=== PATIENT | male | born 1970 | race Caucasian/White ===

== ENCOUNTER 2018-10-11 11:52 | Emergency (ER) | payer OTHER ==
--- NOTE | 2018-10-11 11:55 | PDOC ---
History of Present Illness - General Stated Complaint: CHEST PAIN Time Seen by Provider: 10/11/18 11:54 - History of Present Illness Initial Comments: Tor Sutherland is a 48yo otherwise healthy man who presents with generalized malaise , cough for 2 days, and mid-sternal chest tightness since last night. He states that he started feeling "just not right" on Sunday evening, and he had chills. On Sunday, he woke up with the cough. He states that it feels as though he has a lot of chest congestion but is unable to cough anything out; he believes that he would feel significantly better if the cough became more productive. He went to urgent care yesterday morning but says that "they didn't do anything" there other than give him a cough medication. He took that medication as well as Sudafed last night, but he started having the chest pain in the evening. Mr Sutherland says that the pain He denies any associated fever, nasal/sinus congestion , known sick contacts, nausea, vomiting, or lightheadedness. The pain occurs when he coughs and is non-radiating. It has not been associated with exertion, and he denies any associated symptoms along with the pain. He does report current smoking 1/2-1 PPD for 15 years, and he also reports that his father had an NV at age 50. Past History - Past Medical History Allergies/Adverse Reactions: Allergies Allergy/AdvReac Type Severity Reaction Status Date / Time No Known Allergies Allergy Verified 10/11/18 12:05 Home Medications: Ambulatory Orders Loratadine [Claritin -] 10 mg PO DAILY #10 tablet 10/25/14 Albuterol Sulfate Inhaler - [Ventolin HFA Inhaler -] 1 - 2 inh PO Q4H PRN #1 inhaler 10/11/18 Cetirizine HCl [Zyrtec -] 10 mg PO DAILY #30 tablet 10/11/18 Doxycycline Hyclate [Doryx] 200 mg PO DAILY #7 tablet. 10/11/18 Fluticasone Prop 0.05% Nasal [Flonase -] 1 - 2 spray NS DAILY #1 spray.pump Guaifenesin AC [Robitussin AC] 10 ml PO Q8H PRN #120 ml MDD 3 10/11/18 - Immunization History Immunization Up to Date: Yes - Suicide/Smoking/Psychosocial Hx Smoking History: Never smoked Number of Cigarettes Smoked Daily: 0 Cigars Per Day: 0 Hx Alcohol Use: No Substance Use Type: None Review of Systems - Review of Systems Comments:: General: No fevers, + chills, no weight or appetite change, + malaise HEENT: No changes in vision, no changes in hearing, no congestion, no sore throat CV: No chest pain, no palpitations, no LE edema Pulm: See HPI GI: No nausea or vomiting, no change in bowel habits, no melena : No frequency, no urgency, no dysuria Musc: No back pain, no joint swelling, no recent injury Skin: No rash, no lesions, no erythema Endo: No excessive thirst, no heat/cold intolerance Heme: No unusual bruising or bleeding, no swollen glands Neuro: No syncope, no numbness/tingling, no focal weakness Vasc: No claudication Psych: No recent change in mood, no SI or HI *Physical Exam - Physical Exam Comments: General: Comfortable, no acute distress HEENT: PERRL, EOMI, MMM, voice normal, normal neck ROM, no LAD Cards: RRR, no murmur appreciated Pulm: Comfortable on room air, clear to auscultation bilaterally, no crackles or wheezing appreciated. Abd: Soft, nontender, nondistended Ext: Atraumatic. No LE edema. ROM intact. Vasc: Extremities WWP. Palpable radial and pedal pulses bilaterally Skin: Generalized sunburn davonte upper torso and arms. Numerous red, round, raised lesions c/w insect bites Neuro: A&Ox3, CN grossly intact, normal speech, motor/sensory grossly intact and symmetric Psych: Mood appropriate to situation ED Treatment Course - LABORATORY CBC & Chemistry Diagram: 10/11/18 12:05 10/11/18 12:00 Medical Decision Making - Medical Decision Making 10/11/18 11:56 Tor Sutherland is a 48yo otherwise healthy man who presents with generalized malaise , dry cough for 2 days, and mid-sternal chest tightness since last night. He is a current smoker and reports that his father had an NV at age 50. - Chest tightness most likely secondary to cough, congestion, possible bronchitis or other respiratory virus. However given his family history and smoking history, will evaluate for ACS - CBC, CMP, trop, CK-MB, EKG, CXR - EKG completed. HR 78, normal axis, normal intervals (WA 144, QRS 100, QTc 426) , no ST or t-wave changes. Normal EKG. - ASA 162 - Duonebs for cough 10/11/18 12:53 - Labs w/o concerning abnormalities. Trop negative but will need repeat - CXR reviewed with Dr Valle. No focal abnormalities - Updated pt regarding results. States that nebs helped slightly w/ chest tightness but no significant improvement 10/11/18 15:00 - Repeat trop negative - Will d/c home with PMD follow up. Seen with Dr Valle. Lolly Suh PGY1 *DC/Admit/Observation/Transfer Diagnosis at time of Disposition: Bronchitis - Discharge Dispostion Disposition: HOME Condition at time of disposition: Stable Decision to Admit order: No - Prescriptions Prescriptions: Albuterol Sulfate Inhaler - [Ventolin HFA Inhaler -] 1 - 2 inh PO Q4H PRN #1 inhaler PRN Reason: Short Of Breath/Wheezing Cetirizine HCl [Zyrtec -] 10 mg PO DAILY #30 tablet Doxycycline Hyclate [Doryx] 200 mg PO DAILY #7 tablet. Fluticasone Prop 0.05% Nasal [Flonase -] 1 - 2 spray NS DAILY #1 spray.pump Guaifenesin AC [Robitussin AC] 10 ml PO Q8H PRN #120 ml MDD 3 PRN Reason: Cough - Referrals Referrals: Alexander Gonzalez MD [Primary Care Provider] - Allan Evans MD [Staff Physician] - - Patient Instructions Printed Discharge Instructions: DI for Acute Bronchitis Additional Instructions: Discharge Instructions: You were seen in the ED for cough and chest pain. You have been diagnosed with bronchitis. Your symptoms are probably worsened by seasonal allergies and by smoking. Home Care and Follow Up: - You have been prescribed several medications to use at home. You have been prescribed an albuterol inhaler. This can be used every 4 hours as needed for cough, shortness of breath, or chest tightness. You may want to use it at night if you have increased coughing before bed. - You should use flonase nasal spray to help reduce nasal congestion and irrigation that might be contributing to your symptoms. You can use this 2 sprays in each nostril daily - You have been prescribed an antibiotic. Please take as prescribed until the entire prescription is completed. - You should take a daily allergy medication such as claritin or zyrtec daily to reduce environmental allergies - Make sure to see your regular doctor within the next week for follow up. - Seek immediate medical care if you have worsening symptoms, you develop fever to 101F or higher, you have difficulty breathing, you have chest pain with exertion or chest pain with associated nausea/lightheadedness/sweating, or any other medical emergency. - Post Discharge Activity
[2018-10-11] MEDS ORDERED: ALBUTEROL SO4 2.5/IPRATROPIUM 0.5 INH SOL 3 ML VIAL.NEB. NEB ONE (12:05)
[2018-10-11] MEDS ORDERED: ASPIRIN 81 MG CHEWABLE TABLETS PO ONE (12:09)
[2018-10-11] MEDS: ALBUTEROL SO4 2.5/IPRATROPIUM 0.5 INH SOL 3 ML VIAL.NEB. NEB SCH ×2 (12:15→12:30)
[2018-10-11 12:22] VITALS: BP 128/90; PULSE 96; TEMP 97.9; BMI 32.5
--- NOTE | 2018-10-11 12:24 | PDOC ---
Documentation entered by Jose Reardon SCRIBE, acting as scribe for Charlee Valle MD. Charlee Valle MD: This documentation has been prepared by the Alexys osman Daniel, SCRIBE, under my direction and personally reviewed by me in its entirety. I confirm that the documentation accurately reflects all work, treatment, procedures, and medical decision making performed by me. Attending Attestation - Resident Resident Name: AngeliLolly - ED Attending Attestation I have performed the following: I have examined & evaluated the patient, The case was reviewed & discussed with the resident, I agree w/resident's findings & plan, Exceptions are as noted - HPI HPI: 10/11/18 12:18 48 yo male h/o tobacco use here c/o chest pain cough and sob. pt states he has had a cough for 2 days, malaise and chilld. chest pain tightness since last pm. pt was seen in urgent care yesterday, since not feeling well. no leg swelling. coug nonproductive. is a smoker. has family h/o cad father with [place] in 50's. no leg swelling. no travel. no h/o pe in the past. no mod factors. took one otc med for his cough cold earlier. does report seasonal allergies also. - Physicial Exam PE: 10/11/18 12:20 awake alert lungs decreased at bases. no wheeze no crackles. normal effort. heart rrr no mrg abd soft nt nd ext wwp no edema. no calf tenderness. skin : sunburn, some small bite like lesions over anterior shins, and left wrist. nuero alert oriented x 3. - Medical Decision Making 10/11/18 12:21 48 yo male h/o tobacco use here with cough congestion now sob and chest tightness. differential copd, bronchitits, acs, pna, effusion. plan cxr labs ekg duoneb, asa. will reassess. pt will at least require repeat trop short observation to r/o acs. pt cxr unremarkable. no effusion, no infiltrate. comparison no changes. ekg unremarakable. nsr 78 bpm. t wave Inversion III. 10/11/18 14:39 pt feels improved after duoneb, and cxr labs ekg unremrakble. pt ENT exam with bilat turbinate enlargement. TM clear bilaterally tonsils no erythema no exudate. uvula midline. plan treat for bronchitis inhaler, flonase nasal spray. zyrtec, and fu cardiology. will pg dr vazquez. will start doxycycline 100 mg twice dialy x one week. 10/11/18 14:44 d/w dr forman, will see pt for outpt fu and referral to cardiolgoy. Heart Score/ECG Review #1 General ECG Interpretation: Sinus Rhythm, Normal Rate (78), Normal Intervals, No acute ischemic changes (TWI III only.)
[2018-10-11 12:25] LABS: BASO % 0.8 % (0-2.0); EOS % 2.5 % (0-4.5); HEMOGLOBIN 14.5 GM/dL (11.7-16.9); LYMPH % 16.1 % (8-40); MCH 27.4 pg (25.7-33.7); MCHC 32.9 g/dl (32.0-35.9); MEAN CELL VOLUME 83.2 fl (80-96); MEAN PLT VOLUME 7.6 fl (7.5-11.1); MONO % 9.7 % (3.8-10.2); NEUT % 70.9 % (42.8-82.8); PLATELET COUNT 223 K/MM3 (134-434); RBC 5.29 M/mm3 (4.00-5.60); RDW 12.9 % (11.9-15.9); WHITE BLOOD COUNT 10.4 K/mm3 (4.0-10.0)
[2018-10-11] MEDS ORDERED: ASPIRIN 81 MG CHEWABLE TABLETS ONE (12:41)
[2018-10-11 12:52] LABS: ALBUMIN 3.6 g/dl (3.4-5.0); ALK PHOS 61 U/L (45-117); ANION GAP 7 MMOL/L (8-16); BILIRUBIN,TOTAL 0.4 mg/dL (0.2-1); BLOOD UREA NITROGEN 11 mg/dL (7-18); CALCIUM 8.3 mg/dL (8.5-10.1); CHLORIDE 104 mmol/L (98-107); CO2 27 mmol/L (21-32); GLUCOSE,RANDOM 114 mg/dL (74-106); POTASSIUM 4.1 mmol/L (3.5-5.1); SGOT/AST 24 U/L (15-37); SGPT/ALT 40 U/L (13-61); SODIUM 139 mmol/L (136-145); TOT PROT 7.1 g/dl (6.4-8.2)
--- NOTE | 2018-10-11 13:25 | EKG ---
Test Reason : Blood Pressure : / mmHG Vent. Rate : 078 BPM Atrial Rate : 078 BPM P-R Int : 144 ms QRS Dur : 100 ms QT Int : 374 ms P-R-T Axes : 022 048 024 degrees QTc Int : 426 ms NORMAL SINUS RHYTHM NORMAL ECG WHEN COMPARED WITH ECG OF 24-OCT-2014 22:29, NO SIGNIFICANT CHANGE WAS FOUND Confirmed by CIERRA COLBERT MD ([id number]) on 10/11/2018 1:25:00 PM Referred By: Confirmed By:CIERRA COLBERT MD
[2018-10-11] MEDS ORDERED: ALBUTEROL SO4 8 GM HFA INHALER IH ONE (17:28)
== END 2018-10-11 15:30 | disposition home or self-care (01) ==
LOC: JER 11:52
PROC: 3E0F7GC Introduction of Other Therapeutic Substance into Respiratory Tract, Via Natural or Artificial Opening (ICD-10-PCS; principal; 2018-10-11)
DX: J40 Bronchitis, not specified as acute or chronic (principal)
CPT/HCPCS: 36415; 71046-TC-FY; 80053; 82550; 82553; 84484; 85025; 93005; 93010; 99283-25